=== PATIENT | male | born 1955 | race Caucasian/White ===

== ENCOUNTER 2018-12-19 22:17 | Emergency (ER) | payer MEDICARE, BC ==
[2018-12-19] MEDS ORDERED: Lidocaine 1% w/Epinephrine 1:100K 20 ML VIAL ONE (22:51)
[2018-12-19] MEDS ORDERED: Lidocaine 4% Cream 5 GM TUBE w/ Tegaderm ONE (22:52)
[2018-12-19] MEDS ORDERED: Bacitracin Zinc 1 Packet ONE (23:26)
== END 2018-12-19 23:35 | disposition home or self-care (01) ==
LOC: SCSER 22:17
DX: L02.811 Cutaneous abscess of head [any part, except face] (principal); H61.22 Impacted cerumen, left ear; F17.210 Nicotine dependence, cigarettes, uncomplicated; I10 Essential (primary) hypertension; Z79.899 Other long term (current) drug therapy
CPT/HCPCS: 69210; J2001

== ENCOUNTER 2019-06-19 16:45 | Observation (INO) | payer MEDICARE, BC ==
[2019-06-19 17:58] LABS: #Eosinphils 0.3 thou/uL (0.0-0.7); #Lymphocytes 2.4 thou/uL (1.20-3.40); #Monocytes 0.6 thou/uL (0.11-0.59); #Neutrophils 5.6 thou/uL (1.40-6.50); %Basophils 0.5 % (0.0-1.0); %Eosinophils 3.2 % (0.0-10.0); %Lymphocytes 26.8 % (21.0-51.0); %Monocytes 6.3 % (0.0-10.0); %Neutrophils 63.1 % (42.0-75.0); Hemoglobin 13.3 g/dL (14.0-18.0); Mean Corpuscular HGB CONC 32.9 g/dL (32.0-36.0); Mean Corpuscular Hemoglobin 31.2 pg (27.0-31.0); Mean Corpuscular Volume 94.9 fL (78.0-98.0); Mean Platelet Volume 6.9 fL (7.4-10.4); Platelet Count 293 thou/uL (130-400); RBC Distribution Width 12.8 % (11.5-14.5); Red Blood Cell (RBC) Count 4.26 mill/uL (4.70-6.10); White Blood Cell (WBC) Count 8.9 thou/uL (4.8-10.8)
[2019-06-19] MEDS ORDERED: diphenhydrAMINE 50 MG/ML VIAL ONE (18:10)
[2019-06-19] MEDS ORDERED: Aspirin Chewable 81 MG TAB ONE (18:10)
[2019-06-19] MEDS ORDERED: Famotidine/PF 20 mg/2ml Vial ONE (18:10)
[2019-06-19] MEDS ORDERED: methylPREDNISolone Sod Succ/PF 125 MG/2 ML VIAL ONE (18:10)
[2019-06-19 18:20] LABS: ALT (SGPT) 18 U/L (8-55); AST (SGOT) 21 U/L (5-34); Albumin 4.2 g/dL (3.4-4.8); Alkaline Phosphatase 70 U/L (40-110); Anion Gap 10 mmol/L (10-20); BUN (Urea Nitrogen) 22 mg/dL (8.4-25.7); Bilirubin, Total 0.3 mg/dL (0.2-1.2); Calc. Creatinine Clearance 0 mL/min (70-130); Calcium 9.7 mg/dL (7.8-10.44); Carbon Dioxide 30 mmol/L (23-31); Chloride 108 mmol/L (98-107); Estimated GFR-MDRD 37; Globulin 2.3 g/dL (2.4-3.5); Glucose 82 mg/dL (80-115); Potassium 4.6 mmol/L (3.5-5.1); Protein, Total 6.5 g/dL (5.8-8.1); Sodium 143 mmol/L (136-145)
[2019-06-19] MEDS ORDERED: Acetaminophen 325 MG TAB PO PRN (18:45)
[2019-06-19] MEDS ORDERED: Amlodipine 5 MG TAB PO SCH (19:00)
[2019-06-19] MEDS ORDERED: Sodium Chloride 0.9% 1,000 ML IV SCH (19:00)
[2019-06-19] MEDS ORDERED: Nicotine 14 MG PATCH TD SCH (20:00)
[2019-06-19 20:05] LABS: Bilirubin Negative (Negative); Blood, Urine Negative (Negative); Clarity Clear (Clear); Glucose, Urine (Dipstick) Normal (Negative); Leukocyte Negative Leu/uL (Negative); Nitrite Negative (Negative); Protein, Urine (Dipstick) Negative (Neg-Trace); Urobilinogen Normal mg/dL (Less than 2)
--- NOTE | 2019-06-19 20:43 | RAD ---
FRONTAL RADIOGRAPH CHEST 06/19/19 COMPARISON: 06/02/17 HISTORY: Tongue swelling and chest pain. FINDINGS: Stable increased linear interstitial density and pulmonary hyperinflation suggest COPD. Heart and med iastinal contours are stable. No pneumothorax, pleural fluid, focal consolidation, or alveolar edema . IMPRESSION: No acute findings. POS: [facility]
[2019-06-19 20:45] VITALS: BMI 18.9
[2019-06-19 21:30] LABS: Troponin I 0.034 ng/mL (< 0.028)
[2019-06-20 00:16] LABS: Troponin I 0.038 ng/mL (< 0.028)
--- NOTE | 2019-06-20 00:55 | HP ---
CHIEF COMPLAINT: Tongue swelling. HISTORY OF PRESENT ILLNESS: This patient is a 63-year-old male with a history of some intermittent tongue swelling and various other parts of his body swelling since he was in college. He says that previously he had a little more swelling in other parts of the body, but for years it has primarily affected his tongue, often will have swelling on one side of his tongue only and it typically responds to Benadryl or goes away spontaneously relatively easily and he has not generally sought medical attention for that, simply considered it a way of life and has not told his primary care provider about this either. He has subsequently been placed on antihypertensives. He reports the first time he was on, it caused him a significant amount of cough, and therefore it was changed to lisinopril. The patient states that this episode for him started yesterday. He reports that he was in his usual state of health when he started experiencing a combination of dizziness, which is above his mild baseline associated with some left arm numbness and feeling strange and some palpitations, feeling like tachycardia. He had no specific chest pain or shortness of breath associated with this. He states this lasted for about 5 to 10 minutes and then spontaneously resolved. He has had no problems since that time. He is unsure if he has ever had anything like this before. Today, the patient started experiencing some swelling in the left side of his tongue while sitting and watching television, which is his typical routine. His gave him a Benadryl and then he started having some swelling on the right side of his tongue as well. At that time, he took another Benadryl. He reported some changes in his voice associated with this and he subsequently came to the emergency department. In the emergency department, the patient has received Solu-Medrol, Benadryl, famotidine, and an aspirin. Currently, he feels like he has significantly improved. His voice is essentially back to baseline and his tongue no longer feels significantly swollen. REVIEW OF SYSTEMS: Notable for some urinary frequency and hesitancy consistent with BPH. All other systems reviewed. All other pertinent positives and negatives noted in the HPI. PAST MEDICAL HISTORY: Notable for COPD, hypertension, chronic dizziness/vertigo. 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 He was pushing a crate full of water bottles on a cart that rolled back and forced him up against the wall causing some rib injuries. He is not entirely sure if they are related, but that is what he believes may be the source of his dizziness. He also reports some associated tinnitus. Also of note, the patient has seen Dr. Leonard and had a negative stress test over this summer. PAST SURGICAL HISTORY: Herniorrhaphy, left knee orthopedic procedure, tonsillectomy, vasectomy, bilateral cataract ectomy with extraocular lens implants. FAMILY HISTORY: Father of a CVA. He also had COPD. His mother is doing fine. He has a brother with COPD. SOCIAL HISTORY: The patient is . He is a non-drug user, rare alcohol consumer and he does smoke 1 pack of cigarettes per day. He smoked a pack a day for the past 30 years, but actually started smoking to some degree when he was 12 years old. He is a full code and his is his surrogate decision maker should that become necessary. ALLERGIES: NONE. CURRENT MEDICATIONS: 1. Hydrochlorothiazide 12.5 mg one p.o. q.a.m. 2. Lisinopril 20 mg p.o. daily. PHYSICAL EXAMINATION: VITAL SIGNS: BP 166/77, pulse 90, respirations 19, temperature is 98.5, O2 saturations 100%. GENERAL APPEARANCE: Age-appropriate male, in no distress. He is awake, alert, oriented, pleasant, cooperative. HEENT: PERRL. He has no OP lesions. He does not appear to have significant lingual edema at the moment. Has normal voice, normal speech pattern. NECK: Supple and symmetric without lymphadenopathy, JVD, or carotid bruits. HEART: Regular rate and rhythm. No murmurs, gallops, or rubs. LUNGS: Clear bilaterally. Slightly diminished. ABDOMEN: Soft, nontender, and nondistended. Positive bowel sounds. No masses. No organomegaly. EXTREMITIES: No cyanosis, clubbing, or edema. LABORATORY DATA: White count is 8.9, hemoglobin 13.3, and platelets 293. Sodium is 143, potassium is 4.6, chloride 108, CO2 is 30, BUN 22, creatinine is 1.85, GFR is 37, glucose 82, calcium 9.7, magnesium 2.0. AST is 21, ALT is 18, alkaline phosphatase 70. Troponin less than 0.01. EKG shows sinus loretta at 58 with no significant ischemic changes. IMPRESSION AND PLAN: 1. Angioedema of the tongue as the patient appears to not have had substantial airway compromise and at this point appears as though he is having substantial improvement after having had H1 and H2 blockers and steroids. We will continue to monitor him here overnight. He will discontinue his RITA inhibitor. 2. Hypertension. His blood pressure is still running a bit high tonight. We will go ahead and give him 2.5 of amlodipine, may need to consider that for an outpatient regimen once he is discharged. 3. Left arm numbness associated with some palpitations and dizziness. Etiology of this is unclear. Certainly concerning in the patient with a history of hypertension and tobacco abuse. He did have a negative stress test over the summer with Dr. Leonard. We will keep him on telemetry and do serial cardiac isoenzymes. I suspect it will be most concerning for some type of transient arrhythmia rather than a true ischemic type event. 4. Tobacco abuse. Counseled the patient at length regarding his tobacco abuse. He has tried prior medical therapies, none of which have been tolerated well or successful. 5. Renal insufficiency. Unclear if this is acute or chronic. I do not have any old labs for comparison except for one value in February 2018, at which time, his GFR was 63 and it is down to 37. We will give him some IV fluids and recheck this in the morning. Either way, it would appear as though he has some chronic stage 3 kidney disease based on those numbers and likely a hypertensive nephropathy, which can be followed up as an outpatient. Job ID: [id number]
[2019-06-20 06:20] LABS: Anion Gap 12 mmol/L (10-20); BUN (Urea Nitrogen) 23 mg/dL (8.4-25.7); Calc. Creatinine Clearance 48 mL/min (70-130); Calcium 9.4 mg/dL (7.8-10.44); Carbon Dioxide 22 mmol/L (23-31); Chloride 112 mmol/L (98-107); Estimated GFR-MDRD 55; Glucose 139 mg/dL (80-115); Potassium 4.5 mmol/L (3.5-5.1); Sodium 141 mmol/L (136-145)
[2019-06-20 11:25] VITALS: BP 160/70; TEMP 97.6
--- NOTE | 2019-06-20 17:58 | DIS ---
DATE OF ADMISSION: 06/19/2019 DATE OF DISCHARGE: 06/20/2019 DISCHARGE DISPOSITION: Home. PRIMARY DISCHARGE DIAGNOSIS: Angioedema, resolved. SECONDARY DISCHARGE DIAGNOSES: 1. Hypertension. 2. History of chronic dizziness. 3. History of chronic obstructive pulmonary disease. PROCEDURES DONE DURING HOSPITALIZATION: Chest x-ray done showed no acute findings. Hemoglobin 13, hematocrit 40, platelet count 293, MCV was 94. Initial BUN and creatinine were 22 and 1.8. Discharge BUN and creatinine were 23 and 1.3. Troponin I was indeterminate, peaking up to 0.03. Albumin 4.2. UA was negative for any infection. DISCHARGE MEDICATIONS: The patient to continue hydrochlorothiazide 12.5 mg p.o. daily. ALLERGIES: NO KNOWN DRUG ALLERGIES. DISCHARGE PLAN: The patient to follow up with his primary care physician, Dr. Roca, in 1 week. He is also advised to follow up with Dr. Leonard, his primary project landscape architect, in 3-4 weeks. The patient is advised to check blood pressure and pulse twice daily and record for a period of 10 days to follow up with primary care physician. BRIEF COURSE DURING HOSPITALIZATION: The patient initially came in with complaints of tongue swelling with dizziness and left arm numbness with palpitations. In view of this history, the patient was placed under observation. He has had known history of intermittent tongue swelling which usually gets resolved with Benadryl from the time he was in college. This was unusual because of the other associated symptoms he had. He was closely monitored overnight. The patient had mild acute kidney injury which got resolved with fluid resuscitation. This morning, the patient is eating his breakfast and does not have any shortness of breath or swelling. He is wanting to go home. Of note, his telemetry revealed the patient's heart rate dipping down into 40s. It is unclear if the patient was sleeping during those episodes. When the patient is awake, his heart rate is in the 50s to 60s. He has been advised to check pulse and blood pressure twice daily at home. He needs to record for a period of 10 days and to follow up with his primary care physician and Dr. Leonard in 3-4 weeks. He has had a recent stress test done over the summer which was negative per the patient. Prior to discharge, he is ambulating and eating well. I have seen and examined patient on the day of discharge. Job ID: [id number] [facility]
== END 2019-06-20 11:58 | disposition home or self-care (01) ==
LOC: ERS 16:45 → 2SW 20:40
PROVIDERS: ADMIT Family Medicine; ATTEND Family Medicine
DX: T78.3XXA Angioneurotic edema, initial encounter (principal); R42 Dizziness and giddiness; J44.9 Chronic obstructive pulmonary disease, unspecified; I10 Essential (primary) hypertension; F17.210 Nicotine dependence, cigarettes, uncomplicated; R20.0 Anesthesia of skin; N28.9 Disorder of kidney and ureter, unspecified; Z79.899 Other long term (current) drug therapy
CPT/HCPCS: 71045; 80048; 80053; 81003; 83735; 84484 ×2; 85025; 93005; 96361 ×3; 96374; 96375; 99285; G0378 ×3; 36415; J1200; J2930; S0028

== ENCOUNTER 2021-01-10 10:38 | Outpatient (CLI) | payer MEDICARE, BC | END 2021-01-10 10:39 | disposition home or self-care (01) | LOC: BICMRI 10:38 | PROVIDERS: ATTEND Family Medicine | DX: R41.82 Altered mental status, unspecified (principal); R41.3 Other amnesia | CPT/HCPCS: 70551 ==

== ENCOUNTER 2022-02-16 16:02 | Outpatient (CLI) | payer MEDICARE, BC | END 2022-02-16 16:03 | disposition home or self-care (01) | LOC: BICRAD 16:02 | PROVIDERS: ATTEND Family Medicine | DX: M54.9 Dorsalgia, unspecified (principal); M47.816 Spondylosis without myelopathy or radiculopathy, lumbar region | CPT/HCPCS: 72100 ==

== ENCOUNTER 2022-07-19 13:40 | Outpatient (CLI) | payer MEDICARE, BC | END 2022-07-19 13:41 | disposition home or self-care (01) | LOC: MRI 13:40 | PROVIDERS: ATTEND Family Medicine | DX: M54.9 Dorsalgia, unspecified (principal); R63.4 Abnormal weight loss; R63.0 Anorexia; R59.0 Localized enlarged lymph nodes | CPT/HCPCS: 72148 ==

== ENCOUNTER 2022-08-06 08:25 | Outpatient (CLI) | payer MEDICARE, BC ==
[2022-08-06] MEDS ORDERED: Iopamidol 370 76% 100 ML VIAL ONE (08:48)
== END 2022-08-06 08:26 | disposition home or self-care (01) ==
LOC: CT 08:25
PROVIDERS: ATTEND Internal Medicine
DX: C79.51 Secondary malignant neoplasm of bone (principal); N28.9 Disorder of kidney and ureter, unspecified; K76.9 Liver disease, unspecified; J90 Pleural effusion, not elsewhere classified; R18.8 Other ascites; M89.9 Disorder of bone, unspecified; C80.1 Malignant (primary) neoplasm, unspecified
CPT/HCPCS: 71260; 74177; Q9967

== ENCOUNTER 2022-08-07 11:57 | Outpatient (CLI) | payer MEDICARE, BC | END 2022-08-07 11:58 | disposition home or self-care (01) | LOC: SCSMRI 11:57 | PROVIDERS: ATTEND Internal Medicine | DX: C79.51 Secondary malignant neoplasm of bone (principal); R59.0 Localized enlarged lymph nodes; M48.061 Spinal stenosis, lumbar region without neurogenic claudication; C80.1 Malignant (primary) neoplasm, unspecified | CPT/HCPCS: 70553; 72158 ==